=== PATIENT | male | born 1980 | race Caucasian/White ===

== ENCOUNTER 2016-08-05 22:05 | Emergency (ER) | payer OTHER ==
[2016-08-05 22:09] VITALS: TEMP 36.9; Ht 188 cm
[2016-08-05 23:21] LABS: BASO % 0.3 %; BASO ABS # 0.02 K/uL (0-0.2); COMPLETE YES; EOS % 1.4 %; HEMATOCRIT 44.6 % (42-52); IG% 0.4 %; LYMPH % 29.1 %; LYMPH ABS # 2.31 K/uL (1.2-3.4); MEAN CELL VOLUME 91.6 fL (80-100); MEAN CORPUSCULAR HEMOGLOBIN 31.8 pg (25-34); MEAN CORPUSCULAR HGB CONC 34.8 g/dl (32-36); MONO % 7.4 %; NEUT % 61.4 %; PLATELET COUNT 216 K/uL (130-400); RED BLOOD COUNT 4.87 M/uL (4.7-6.1); WHITE BLOOD COUNT 7.94 K/uL (4.8-10.8)
[2016-08-05] MEDS ORDERED: PROP20TA67 PO (23:24)
[2016-08-05] MEDS ORDERED: COMPOUND TOP (23:24)
[2016-08-05] MEDS ORDERED: ATOR-24 PO (23:24)
[2016-08-05] MEDS ORDERED: PARO30TA PO (23:24)
[2016-08-05] MEDS ORDERED: ZNTT/150 PO (23:24)
[2016-08-05] MEDS ORDERED: TAMS0.4C38 PO (23:26)
[2016-08-05] MEDS ORDERED: NRN600 PO (23:26)
[2016-08-05] MEDS ORDERED: MTR600XX PO (23:26)
[2016-08-05] MEDS ORDERED: NTRSL3 UT (23:27)
[2016-08-05] MEDS ORDERED: NORT50CA PO (23:27)
[2016-08-05 23:43] LABS: BLOOD UREA NITROGEN 15 mg/dl (7-18); BUN/CREATININE RATIO 11.8 (10-20); CALCIUM 9.6 mg/dl (8.5-10.1); CARBON DIOXIDE 30 mmol/L (21-32); CHLORIDE 105 mmol/L (98-107); GLUCOSE 108 mg/dl (70-99); POTASSIUM 4.4 mmol/L (3.5-5.1); SODIUM 141 mmol/L (136-145)
[2016-08-05 23:47] LABS: URINE APPEARANCE CLEAR (CLEAR); URINE BILIRUBIN NEG (NEG); URINE COLOR YELLOW; URINE NITRITE NEG (NEG); URINE PH 6.5 (4.5-7.5); UROBILINOGEN NEG (NEG); ZZURINE CULT IF INDIC CATH NO
[2016-08-05 23:48] LABS: MANUAL MICROSCOPIC REQUIRED? NO; REVIEW REQ? NO
[2016-08-06 00:24] VITALS: BP 143/89; PULSE 83; O2SAT 95
--- NOTE | 2016-08-06 00:25 | EMERGENCY ROOM VISIT NOTE ---
History First contact with patient: 22:40 Chief Complaint: URINARY SYMPTOMS Stated Complaint: URINARY OBSTRUCTION Nursing Triage Summary: Patient presents with a one day history of intermittent dysuria. Negative penile d/c, negative blood in urine. Last strong stream void was this AM. patient denies any fever/chills. He does report some diffuse suprapubic pain. Bladder is non-distended. Bladder scanner is 135 ml. History of Present Illness The patient is a 36 year old male who presents to the Emergency Room with complaints of difficulty urinating. The patient states that over the past 3 days, he has had difficulty urinating and has had to catheterize himself twice daily. He reports he has been drinking water normally. He does report some pain/pressure across the lower abdomen which is relieved when he empties his bladder. He denies any history of urinary issues or prostate problems. He has seen the [facility] medical staff twice and was sent here today due to persistent symptoms and some blood in the urine after he catheterized himself. He denies any dysuria, frequency, back pain, fevers or rectal pain. Review of Systems A complete 10-point Review of Systems was discussed with the patient, with pertinent positives and negatives listed in the History of Present Illness. All remaining Review of Systems questions can be considered negative unless otherwise specified. Social History Smoking Status: Current Every Day Smoker Current/Historical Medications Scheduled Atorvastatin (Lipitor), 40 MG PO DAILY Gabapentin (Gabapentin), 600 MG PO TID Ibuprofen (Ibuprofen), 600 MG PO TID Nortriptyline (Pamelor), 100 MG PO HS Paroxetine Hcl (Paxil), 30 MG PO HS Propranolol (Inderal), 20 MG PO BID Ranitidine (Zantac), 150 MG PO BID Tamsulosin Hcl (Flomax), 0.4 MG PO HS [compound 221], 1 APPLN TOP BID Scheduled PRN Nitroglycerin (Nitrostat), 0.3 MG UT UD PRN for Chest Pain Allergies Uncoded Allergies: MUSHROOMS (Allergy, Severe, swelling, 08/05/16) Physical Exam Vital Signs Date Time Temp Pulse Resp B/P Pulse Ox O2 Delivery O2 Flow Rate FiO2 08/06/16 00:24 83 18 143/89 95 Room Air 08/05/16 22:09 36.9 90 20 118/78 97 Room Air Physical Exam VITALS: Vitals are noted on the nurse's note and reviewed by myself. Vital signs stable. GENERAL: This is a 36-year-old male, in no acute distress, nondiaphoretic, well- developed well-nourished. HEART: Regular rate and rhythm without murmurs gallops or rubs. LUNGS: Clear to auscultation bilaterally without wheezes, rales or rhonchi. ABDOMEN: Positive bowel sounds x 4. Soft, mild suprapubic tenderness. No guarding or rebound tenderness. MUSCULOSKELETAL: No CVA tenderness. RECTAL: Normal rectal tone. Prostate is not enlarged or boggy. No significant tenderness on prostate examination. NEURO: Patient was alert and oriented to person place and time. Medical Decision & Procedures Laboratory Results 08/05/16 23:03 Red Blood Count 4.87, Mean Corpuscular Volume 91.6, Mean Corpuscular Hemoglobin 31.8, Mean Corpuscular Hemoglobin Concent 34.8, Mean Platelet Volume 9.0, Neutrophils (%) (Auto) 61.4, Lymphocytes (%) (Auto) 29.1, Monocytes (%) (Auto) 7.4, Eosinophils (%) (Auto) 1.4, Basophils (%) (Auto) 0.3, Neutrophils # (Auto) 4.88, Lymphocytes # (Auto) 2.31, Monocytes # (Auto) 0.59, Eosinophils # (Auto) 0.11, Basophils # (Auto) 0.02 08/05/16 23:03 Test 08/05/16 23:03 08/05/16 23:30 White Blood Count 7.94 K/uL (4.8-10.8) Red Blood Count 4.87 M/uL (4.7-6.1) Hemoglobin 15.5 g/dL (14.0-18.0) Hematocrit 44.6 % (42-52) Mean Corpuscular Volume 91.6 fL (80-100) Mean Corpuscular Hemoglobin 31.8 pg (25-34) Mean Corpuscular Hemoglobin Concent 34.8 g/dl (32-36) Platelet Count 216 K/uL (130-400) Mean Platelet Volume 9.0 fL (7.4-10.4) Neutrophils (%) (Auto) 61.4 % Lymphocytes (%) (Auto) 29.1 % Monocytes (%) (Auto) 7.4 % Eosinophils (%) (Auto) 1.4 % Basophils (%) (Auto) 0.3 % Neutrophils # (Auto) 4.88 K/uL (1.4-6.5) Lymphocytes # (Auto) 2.31 K/uL (1.2-3.4) Monocytes # (Auto) 0.59 K/uL (0.11-0.59) Eosinophils # (Auto) 0.11 K/uL (0-0.5) Basophils # (Auto) 0.02 K/uL (0-0.2) RDW Standard Deviation 44.5 fL (36.4-46.3) RDW Coefficient of Variation 13.2 % (11.5-14.5) Immature Granulocyte % (Auto) 0.4 % Immature Granulocyte # (Auto) 0.03 K/uL (0.00-0.02) Anion Gap 6.0 mmol/L (3-11) Estimated GFR () 80.8 Estimated GFR (Non- 69.7 BUN/Creatinine Ratio 11.8 (10-20) Calcium Level 9.6 mg/dl (8.5-10.1) Urine Color YELLOW Urine Appearance CLEAR (CLEAR) Urine pH 6.5 (4.5-7.5) Urine Specific [place] 1.020 (1.000-1.030) Urine Protein NEG (NEG) Urine Glucose (UA) NEG (NEG) Urine Ketones NEG (NEG) Urine Occult Blood 2+ (NEG) Urine Nitrite NEG (NEG) Urine Bilirubin NEG (NEG) Urine Urobilinogen NEG (NEG) Urine Leukocyte Esterase NEG (NEG) Urine WBC (Auto) 1-5 /hpf (0-5) Urine RBC (Auto) >30 /hpf (0-4) Urine Hyaline Casts (Auto) 1-5 /lpf (0-5) Urine Epithelial Cells (Auto) 10-20 /lpf (0-5) Urine Bacteria (Auto) NEG (NEG) Medical Decision Differential diagnosis includes cystitis, kidney stone, prostatitis, BPH, among others. The patient is a 36-year-old male who presents today complaining of difficulty urinating. Labs revealed no leukocytosis. Kidney function was within normal limits. Urinalysis showed 2+ blood, but was not suggestive of infection. Rectal exam was not suggestive of prostatitis. The nurses performed a bladder scan and scanned the patient for 135 mL. He does not appear to be retaining urine. At this point, I feel the patient needs follow-up with urology for further testing. 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 The patient's case was reviewed with Dr. Mesa, ED attending physician, who agreed with my assessment and treatment plan. Based on the patient's presentation and work up, I feel the patient is stable for outpatient treatment. The patient was educated to the emergency department for any worsening of their current condition or new/concerning symptoms. He will follow up with the [facility] and urology. Impression Primary Impression: Difficulty urinating Departure Information Dispostion Home / Self-Care Condition GOOD Referrals Demetri PATTERSON (PCP) Patient Instructions My [facility] Additional Instructions Follow-up with a urologist for further evaluation. Follow-up with the [facility] within 48 hours. Return for any worsening symptoms.
== END 2016-08-06 00:28 | disposition home or self-care (01) ==
LOC: C.EDB 22:07 → C.EDC 08-06 00:28
DX: R39.198 Other difficulties with micturition (principal); F17.200 Nicotine dependence, unspecified, uncomplicated; G57.93 Unspecified mononeuropathy of bilateral lower limbs